=== PATIENT | male | born 1960 | race Caucasian/White ===

== ENCOUNTER → 2020-06-25 10:24 | Outpatient (BNVA) | payer OTHER, SELFPAY | PROVIDERS: Family Provider Nurse Practitioner; Referring Provider Dermatology; Visit Provider Specialist | DX: M79.642 Pain in left hand (principal) | CPT/HCPCS: 73130 ==

== ENCOUNTER → 2020-07-13 09:07 | Outpatient (BNVA) | payer OTHER, SELFPAY | PROVIDERS: Family Provider Nurse Practitioner; Visit Provider Specialist | DX: M67.432 Ganglion, left wrist (principal); Z20.828 Contact with and (suspected) exposure to other viral communicable diseases | CPT/HCPCS: 87635 ==

== ENCOUNTER 2020-07-17 09:31 | Day surgery (SDC) | payer OTHER, SELFPAY ==
[2020-07-16 14:04] VITALS: BMI 39.7
[2020-07-16 14:53] VITALS: BMI 23.8
[2020-07-17 09:40] VITALS: BP 152/75; PULSE 75; RESP 18; TEMP 36.2; O2SAT 98
--- NOTE | 2020-07-17 09:41 | P.HPUD_ITS ---
Surgery/Procedure H&P Update DATE OF PROCEDURE: July 17, 2020 DATE H&P PERFORMED: 06/25/20 H&P UPDATE INFORMATION: I have reviewed H&P completed within last 30 days, I have examined patient prior to procedure, No changes to prior documentation and H&P is in [facility] EMR on date indicated PREOP DIAGNOSIS: Dorsal left wrist ganglion PLANNED PROCEDURE: Operation Date: 07/17/20 11:15 Proposed Procedures p Excision Of Ganglion Cyst left wrist 37222 M67.432(Left) - Gill Castillo MD Related Problem List Diagnoses (1) Ganglion cyst of dorsum of left wrist:
[2020-07-17] MEDS: sodium chloride 0.9% 1,000 ML 30 ML IV (10:04)
[2020-07-17] MEDS: acetaminophen 1,000 MG/100 ML PIGGYBACK 400 MG IV (10:10)
[2020-07-17] MEDS: CELEcoxib 200 mg Capsule 400 MG PO (10:14)
--- NOTE | 2020-07-17 10:19 | ANES.PREANE2 ---
Pre-Anesthetic Assessment Pre-Anesthetic Assessment: Height/Weight: Height 1.7 m Weight 68.946 kg Temp Pulse Resp BP Pulse Ox 97.1 F L 75 18 152/75 98 07/17/20 09:40 07/17/20 09:40 07/17/20 09:40 07/17/20 09:40 07/17/20 09:40 Preop Diagnosis: Dorsal left wrist ganglion Proposed Procedure: Operation Date: 07/17/20 11:15 Proposed Procedures p Excision Of Ganglion Cyst left wrist 54892 M67.432(Left) - Gill Castillo MD Was Beta John taken within 24 hours: Yes Was Clonidine taken within 24 hours: N/A Last intake: Intake Last Liquid Date 07/16/20 Last Liquid Time 21:00 Last Solid Date 07/16/20 Last Solid Time 19:00 Social: Social History: No alcohol and No tobacco (H/o smoking) Exam: Pre-Anes Outpt Exam: alert, oriented x 3, clear to auscultation bilaterally and regular rate & rhythm Airway: Submandibular: WNL Cervical ROM: WNL MP: 2 Dentition: Full Pulmonary: Pulmonary: COPD CV/HEM: CV/HEM: CAD (stents) and HTN Anesthetic Plan: ASA status: 3 Anesthesia: MAC Risk of > 500 ml blood loss (7ml/kg in children): No Meds/Allergies Current Medications: Current Medications Generic Name Dose Route Start Last Admin Trade Name Freq PRN Reason Stop Dose Admin Acetaminophen 1,000 mg in 100 m ls @ 400 mls/hr 07/17/20 09:36 07/17/20 10:10 Acetaminophen IV 400 mls/hr ONCE ONE Administration Sodium Chloride 1,000 mls @ 30 ml s/hr 07/17/20 09:45 07/17/20 10:04 Sodium Chloride 0.9% IV 07/18/20 09:44 30 mls/hr .Q24H JASON Administration PFSH Anesthesia PFSH: Social History Smoking and tobacco status: former smoker Alcohol intake: current Alcohol intake frequency: holidays/special occasions only Data Anesthesia Cardiac Studies: No Data to Display
[2020-07-17 11:18] VITALS: BP 154/55; PULSE 52; RESP 16; TEMP 36.2; O2SAT 97
[2020-07-17 11:25] VITALS: BP 118/51; PULSE 58; RESP 14; TEMP 36.6; O2SAT 98
--- NOTE | 2020-07-17 11:27 | PM.OP ---
Operative Report Date of procedure: July 17, 2020 Pre-op Diagnosis: Dorsal left wrist ganglion Post-op diagnosis: same Procedure Done: Excision left dorsal wrist ganglion Implants: None Specimens removed/disposition: Dorsal wrist ganglion Pathology: Dorsal wrist ganglion Surgeon: Gill Castillo Anesthesia: MAC (With local anesthetic) Estimated blood loss (mL): 10 Tourniquet time (min): 20 Tourniquet time: At 250 mmHg IV fluids (mL): 550 Urine output (mL): 0 Urine output: No Escobar Complications: None Findings: Large dorsal wrist ganglion Condition: stable Disposition: PACU (Then return to same-day surgery for discharge to home) Brief History: This 59-year-old gentleman presented with a large dorsal wrist ganglion. It was uncomfortable for him, and he wished to have it excised. Risks and complications were discussed. Consents were signed. Procedure: The patient was brought to the operating theater. The patient had a MAC with local anesthetic infiltration. The tourniquet was elevated to 250 mmHg for a total tourniquet time of 20 minutes. The patient was also given Ancef 2 g preoperatively. The arm was then prepped and draped with DuraPrep in usual fashion with the arm draped free. A surgical pause was performed. At the time, the surgical pause, we confirmed the site and side of surgery. We also confirmed the patient's identity, appropriate and timely administration of preoperative antibiotics and preoperative surgical markings. An incision was then made along the dorsal wrist crease corresponding to the central portion of the ganglion. This was made in a transverse type fashion. Initially, just the skin was incised. Soft tissues were then spread using tenotomy scissors. We were able to circumferentially elevate soft tissues from around the ganglion preserving the soft tissues including sensory nerves. We are able to find the stalk of the ganglion and it was excised from this area. The ganglion was sent to pathology. It was filled with ganglion cyst type fluid. The wound was then copiously irrigated. Tourniquet was released and hemostasis was obtained. We determined prior to tourniquet release was there was any further ganglion tissue. Finding none, attention was directed to closure. The wound was irrigated with ropivacaine plain. It was then closed with 3-0 nylon in an interrupted mattress fashion. Sterile dressing was then placed consisting of OpSite, fluffed fluffs, sterile soft roll, and an Shravan wrap. The tourniquet was released after 20 minutes. There were no complications. There were no specimens. The procedure was well tolerated. Plan is the patient will be discharged home. Associated Problem List Diagnoses (1) Ganglion cyst of dorsum of left wrist:
[2020-07-17 11:35] VITALS: BP 128/53; PULSE 50; RESP 16; TEMP 36.6; O2SAT 97
[2020-07-17 12:05] VITALS: BP 113/57; PULSE 51; RESP 16; TEMP 36.6; O2SAT 98
--- NOTE | 2020-07-17 13:05 | ANE.PACU2 ---
Inpatient post-anesthesia follow up: Airway intact: Yes Vital signs: Temperature 97.9 F Pulse Rate 51 Respiratory Rate 16 Blood Pressure 113/57 Pulse Oximetry 98 Oxygen Delivery Me thod Room Air Oxygen Flow Rate Fraction of Inspir ed Oxygen Hydration adequate: Yes Nausea and vomiting: No Pain level: 1 Mental status: Baseline
== END 2020-07-17 12:15 | disposition home or self-care (01) ==
PROVIDERS: PCP Nurse Practitioner; Visit Provider Specialist
PROC: (CPT 25111; principal; 2020-07-17 11:05)
DX: M67.432 Ganglion, left wrist (principal); J44.9 Chronic obstructive pulmonary disease, unspecified; I25.10 Atherosclerotic heart disease of native coronary artery without angina pectoris; Z95.5 Presence of coronary angioplasty implant and graft; I10 Essential (primary) hypertension; Z87.891 Personal history of nicotine dependence
CPT/HCPCS: 25111; 88304; 96365; J0690; J2250; J2704; J3010; J3490; J7030

== ENCOUNTER 2021-01-01 09:18 | Outpatient (CLI) | payer OTHER, SELFPAY ==
--- NOTE | 2021-01-01 09:30 | USCV_ITS ---
Myles Ramsay Age: 60 Gender: M : 1960 Exam Date: 01/01/2021 09:48 Ordering Phys: Elle Seo NP Technologist: Tila Gómez [place] [facility] [place]: ESSENTIAL HTN, HX CARDIAC STENT BP: 120 / 70 HR: 64 Rhythm: Sinus Technical Quality: Good MEASUREMENTS (Male / Female) Normal Values 2D ECHO LV Diastolic Diameter PLAX 4.9 cm 4.2 - 5.9 / 3.9 - 5.3 cm LV Systolic Diameter PLAX 2.5 cm IVS Diastolic Thickness 1.0 cm 0.6 - 1.0 / 0.6 - 0.9 cm IVS Systolic Thickness 1.5 cm LVPW Diastolic Thickness 1.0 cm 0.6 - 1.0 / 0.6 - 0.9 cm LVPW Systolic Thickness 1.2 cm LVOT Diameter 2.1 cm LV Ejection Fraction 2D Teich 79.9 % LV Ejection Fraction MOD 2C 69.5 % LV Ejection Fraction 2C AL 71.3 % LA Diameter 2.4 cm LA Width 2.6 cm LA Height 3.4 cm RA Width 2.6 cm RA Height 3.7 cm Aorta at Sinotubular Diameter 2.8 cm DOPPLER AV Peak Velocity 123.0 cm/s LVOT Peak Velocity 119.0 cm/s AV Area Cont Eq vti 3.6 cm squared AV Area Cont Eq pk 3.3 cm squared MV Peak Velocity 90.0 cm/s MV Area PHT 2.2 cm squared Mitral E to A Ratio 0.9 MV E' Velocity 42.0 cm/s Mitral E to MV E' Ratio 6.6 Mitral E to LV E' Lateral Ratio 6.1 Mitral E to LV E' Septal Ratio 7.1 TR Peak Velocity 90.0 cm/s TR Peak Gradient 3.2 mmHg Right Atrial Pressure 3.0 mmHg Pulmonary Artery Systolic Pressu 6.2 mmHg PV Peak Velocity 86.0 cm/s RV Acceleration Time 0.1 s RV Ejection Time 0.3 s RV AcT/ET 0.5 FINDINGS Left Ventricle Normal left ventricular size. LV systolic function is normal with EF of 55-60%.Mild hypokinesis of the anterior wall. Normal diastolic filling pattern. Right Ventricle The right ventricle is normal in size and function. Right Atrium The right atrium is normal in size. Left Atrium The left atrium is normal in size. Mitral Valve Structurally normal mitral valve without significant stenosis or prolapse. There is no mitral regurgitation. Aortic Valve Structurally normal aortic valve without significant sclerosis or stenosis. There is no aortic regurgitation. Tricuspid Valve Structurally normal tricuspid valve without significant stenosis. Trace tricuspid regurgitation. Pulmonary artery systolic pressure is normal. Pulmonic Valve Structurally normal pulmonic valve without significant stenosis. There is no pulmonic regurgitation. Pericardium Normal pericardium without effusion. Aorta Normal ascending aorta dimension. CONCLUSIONS LV systolic function is normal with EF of 55-60%. Mild hypokinesis of the anterior wall. Diastolic function is normal No significant valvular heart disease is noted No comparison studies are available Benjamin Walsh MD (Electronically Signed) Final Date: 02 January 2021 15:17 S
--- NOTE | 2021-01-01 09:31 | XR_ITS ---
WS: [id number] Left shoulder, 3 views, 01/01/2021 Clinical Data: LEFT SHOULDER PAIN Comparison: None. Findings: No fractures or dislocations are seen. The AC joint is normal. The adjacent left clavicle, left scapu la and ribs are normal. There is a small calcification over the intertubercular groove which may repr esent calcific bursitis and/or tendinitis. XR/XR shoulder LT min 2V* [id number] Impression: Probable calcific bursitis or tendinitis of the intertubercular groove.
== END 2021-01-01 09:19 | disposition home or self-care (01) ==
PROVIDERS: PCP Nurse Practitioner Family; Visit Provider Nurse Practitioner Family
DX: I25.10 Atherosclerotic heart disease of native coronary artery without angina pectoris (principal); R53.83 Other fatigue; I10 Essential (primary) hypertension; M25.512 Pain in left shoulder; Z95.818 Presence of other cardiac implants and grafts
CPT/HCPCS: 73030; 93306

== ENCOUNTER 2023-08-18 15:57 | Inpatient (IN) | payer OTHER, SELFPAY ==
[2023-08-18] VITALS (7 sets, daily range): BP systolic 125–156; BP diastolic 77–96; PULSE 74–101; RESP 18; TEMP 36.3–36.4; O2SAT 95–98; BMI 16.4
--- NOTE | 2023-08-18 16:14 | ECG_ITS ---
[facility] Test Date: 2023-08-18 Pat Name: Myles Ramsay Department: Room: 278 Gender: Male Seismographer: : 1960 Requested By: Arpit Gomez Order Number: [id number] Alexandru MD: Star Son M.D. Measurements Intervals [place] Rate: 99 P: 85 WV: 151 QRS: 261 QRSD: 89 T: 68 QT: 336 QTc: 433 Interpretive Statements SINUS RHYTHM RIGHT VENTRICULAR HYPERTROPHY [SOME/ALL OF: PROMINENT R IN V1, LATE TRANSITION, RAD, IGOR, SSS] No previous ECG available for comparison Electronically Signed On 08-19-2023 9:17:14 CDT by Star Son M.D. [email or web address]
--- NOTE | 2023-08-18 16:14 | XRR_ITS ---
PROCEDURE INFORMATION: Exam: XR Chest Exam date and time: 08/18/2023 4:20 PM Age: 62 years old Clinical indication: Other: Weakness TECHNIQUE: Imaging protocol: Radiologic exam of the chest. Views: 1 view. COMPARISON: CR XR shoulder LT min 2V* [id number] 01/01/2021 9:39 AM FINDINGS: Lungs: Moderately hyperinflated lungs. Minor basilar atelectasis. Pleural spaces: Unremarkable. No pleural effusion. No pneumothorax. Heart/Mediastinum: Unremarkable. No cardiomegaly. Bones/joints: Unremarkable. XR/XR chest 1V portable [id number] IMPRESSION: Hyperinflated lungs suggestive of COPD. No focal airspace opacity.
--- NOTE | 2023-08-18 16:21 | CTR_ITS ---
PROCEDURE INFORMATION: Exam: CTA Chest With Contrast Exam date and time: 08/18/2023 5:37 PM Age: 62 years old Clinical indication: Vomiting and other: Weakness, loss of appetite; Shortness of breath; Prior surgery; Surgery date: 6+ months; Surgery type: Heart stents 20 years ago; Additional info: SOB, vomiting, weakness TECHNIQUE: Imaging protocol: Computed tomographic angiography of the chest with contrast. Exam focused on the arteries. 3D rendering (Not supervised by radiologist): MIP and/or 3D reconstructed images were created by the technologist. Radiation optimization: All CT scans at this facility use at least one of these dose optimization techniques: automated exposure control; mA and/or kV adjustment per patient size (includes targeted exams where dose is matched to clinical indication); or iterative reconstruction. Contrast material: OMNI 350; Contrast volume: 100 ml; Contrast route: INTRAVENOUS (IV); COMPARISON: CR XR chest 1V portable [id number] 08/18/2023 4:20 PM RADIATION DOSE METRICS: Total DLP (mGy-cm): 596.13 FINDINGS: Pulmonary arteries: Normal. No pulmonary emboli. Aorta: Unremarkable. No aortic aneurysm. No aortic dissection. Lungs: Hyperinflated lungs due to mild-moderate centrilobular emphysema. Borderline cylindrical bronchiectasis in the perihilar regions and lung bases. Mild superimposed diffuse bronchial wall thickening. Mild retained secretions in micronodular and patchy ground-glass peribronchial opacities in the left greater than right posterior lower lobes. A few other 2-3 mm nodules are noted (for example series 4, image 30 in the left upper lobe and image 36 in the right upper lobe). Pleural spaces: Unremarkable. No pneumothorax. No pleural effusion. Heart: Unremarkable. No cardiomegaly. No pericardial effusion. Lymph nodes: Unremarkable. No enlarged lymph nodes. Bones/joints: No acute osseous abnormality. Mild degenerative spondylosis. Soft tissues: Unremarkable. COMMENTS: The presence of pulmonary emphysema on CT is an independent risk factor for lung cancer. In the absence of a history or active diagnosis of lung cancer, it is recommended that this patient with emphysema be evaluated for enrollment in a low dose CT lung cancer screening program. PROCEDURE INFORMATION: Exam: CT Abdomen And Pelvis With Contrast Exam date and time: 08/18/2023 5:37 PM Age: 62 years old Clinical indication: Vomiting and other: Weakness, loss of appetite; Shortness of breath; Prior surgery; Surgery date: 6+ months; Surgery type: Heart stents 20 years ago; Additional info: SOB, vomiting, weakness TECHNIQUE: Imaging protocol: Computed tomography of the abdomen and pelvis with contrast. Radiation optimization: All CT scans at this facility use at least one of these dose optimization techniques: automated exposure control; mA and/or kV adjustment per patient size (includes targeted exams where dose is matched to clinical indication); or iterative reconstruction. Contrast material: OMNI 350; Contrast volume: 100 ml; Contrast route: INTRAVENOUS (IV); COMPARISON: CR XR chest 1V portable [id number] 08/18/2023 4:20 PM RADIATION DOSE METRICS: Total DLP (mGy-cm): 596.13 FINDINGS: Liver: Mild to moderate diffuse hepatic steatosis. Gallbladder and bile ducts: Normal. No calcified stones. No ductal dilation. Pancreas: Normal. No ductal dilation. Spleen: Normal. No splenomegaly. Adrenal glands: Normal. No mass. Kidneys and ureters: 2.1 cm left renal cyst. Additional 1.1 cm exophytic upper pole left renal cyst. Stomach and bowel: Scattered sigmoid diverticuli. Appendix: No evidence of appendicitis. Intraperitoneal space: Unremarkable. No free air. No significant fluid collection. Vasculature: Unremarkable. No abdominal aortic aneurysm. Lymph nodes: Unremarkable. No enlarged lymph nodes. Urinary bladder: Unremarkable as visualized. Reproductive: Unremarkable as visualized. Bones/joints: Mild multilevel mid to lower lumbar spondylosis. Soft tissues: Unremarkable. CT/CT angio chest w abd pel w con IMPRESSION: 1. No evidence of pulmonary embolism or acute aortic abnormality. 2. Mild -moderate emphysema and hyperinflation. Superimposed mild peribronchial ground-glass opacities and micronodules in the left greater than right lower lobes , suggestive of COPD exacerbation, bronchitis / early pneumonitis. 3. Scattered 2-3 mm basilar and upper lobe lung nodules , follow-up CT in 1 year is recommended in this high-risk patient according to the Fleischner guidelines. IMPRESSION: 1. No acute abdominopelvic abnormality or other imaging correlate for the reported history of weight loss. 2. Moderate diffuse hepatic steatosis, scattered sigmoid diverticuli, simple left renal cysts and other incidental and degenerative findings detailed above. COMMENTS: Consistent with the [employer]'s Incidental Findings Committee white paper (J Am Shirley Radiol 2018): Any incidental renal lesion less than 1 cm or classified as too small to characterize, or any incidental cystic renal lesion characterized as simple-appearing, is likely benign. No follow-up imaging is recommended for these lesions per consensus recommendations based on imaging criteria.
--- NOTE | 2023-08-18 16:21 | ECG_ITS ---
[facility] Test Date: 2023-08-18 Pat Name: Myles Ramsay Department: Room: Gender: Male Curb Hop: : 1960 Requested By: Arpit Gomez Order Number: [id number] Alexandru MD: Star Son M.D. Measurements Intervals [place] Rate: 99 P: 85 MD: 151 QRS: 261 QRSD: 89 T: 68 QT: 336 QTc: 433 Interpretive Statements SINUS RHYTHM RIGHT VENTRICULAR HYPERTROPHY [SOME/ALL OF: PROMINENT R IN V1, LATE TRANSITION, RAD, IGOR, SSS] No previous ECG available for comparison Electronically Signed On 08-19-2023 9:17:18 CDT by Star Son M.D. [email or web address]
--- NOTE | 2023-08-18 16:22 | ED_ITS ---
HPI - Weakness 2 General: Chief complaint: Weakness Stated complaint: weakness Time Seen by Provider: 08/18/23 16:15 Source: patient Mode of arrival: ambulatory Limitations: no limitations History of Present Illness: 62-year-old male who states that he has had some weakness fatigue and not feeling well really since May states over the last 3 to 4 days it is worsening he states today he is felt very shaky he has had a loss of appetite over the last 3 weeks he is felt nauseous he denies any fevers he is a smoker denies chest pain. 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 Hypertension, essential History of placement of stent in LAD coronary artery Surgical History History of heart artery stent Family History Mother Breast cancer Lung cancer Stomach cancer Father Dementia Heart disease Social History Smoking and tobacco/nicotine status: former use of tobacco/nicotine Alcohol intake: current Alcohol intake frequency: holidays/special occasions only Substance/Drug Use: never Physical Exam 2 Const: COMMON NORMALS: patient oriented x3 GENERAL APPEARANCE: frail appearing HENMT: COMMON NORMALS: normocephalic and atraumatic HEAD & SCALP: n ormocephalic and atraumatic Neck/C-Spine: COMMON NORMALS: full ROM and supple Chest: COMMONS NORMALS: normal inspection of the chest Resp: COMMON NORMALS: normal respiratory effort, No retractions, No use of accessory muscles and clear to auscultation bilaterally AUSCULTATION: clear to auscultation bilaterally Cardio: COMMON NORMALS: regular rate, regular rhythm and No murmurs present (Cardio) RATE: regular rate RHYTHM: regular rhythm GI: COMMON NORMALS: Normal to inspection, nondistended, normoactive bowel sounds present, Soft to palpation, non-tender and no masses PALPATION: Yes Soft to palpation Extremity: COMMON NORMALS: normal to inspection and full ROM Neuro: COMMON NORMALS: patient oriented x3, moves all extremities and no focal motor deficits Psych: COMMON NORMALS: mental status grossly normal, Normal thought process present and cooperative THOUGHT PROCESS: Normal thought process present Skin: COMMON NORMALS: no rashes or lesions noted and no wounds GENERAL SKIN EXAM: no rashes or lesions noted Course 2 Vital Signs: Vital signs: Vital Signs Temperature 97.3 F L 08/18/23 16:03 Pulse Rate 88 08/18/23 19:09 Respiratory Rate 18 08/18/23 16:03 Blood Pressure 141/86 08/18/23 19:09 Pulse Oximetry 97 08/18/23 19:09 Oxygen Delivery Me thod Room Air 08/18/23 16:03 MDM - Weakness Medical Decision Making Patient presents here with generalized weakness he does have an elevated white count here along with elevated lactate his CT shows a pneumonitis possible pneumonia his vital signs here been normal he had no hypotension did start antibiotics did give him IV fluid bolus will admit for observation at this time. Medical Records I reviewed the patient's medical records. Lab Data I reviewed the patient's lab results. 08/18/23 16:41 08/18/23 16:41 Radiology Impressions Chest X-Ray 08/18/23 16:14 IMPRESSION: Hyperinflated lungs suggestive of COPD. No focal airspace opacity. Chest/Abdomen/Pelvis CT 08/18/23 16:21 IMPRESSION: 1. No evidence of pulmonary embolism or acute aortic abnormality. 2. Mild -moderate emphysema and hyperinflation. Superimposed mild peribronchial ground-glass opacities and micronodules in the left greater than right lower lobes , suggestive of COPD exacerbation, bronchitis / early pneumonitis. 3. Scattered 2-3 mm basilar and upper lobe lung nodules , follow-up CT in 1 year is recommended in this high-risk patient according to the Fleischner guidelines. IMPRESSION: 1. No acute abdominopelvic abnormality or other imaging correlate for the reported history of weight loss. 2. Moderate diffuse hepatic steatosis, scattered sigmoid diverticuli, simple left renal cysts and other incidental and degenerative findings detailed above. COMMENTS: Consistent with the [employer]'s Incidental Findings Committee white paper (J Am Shirley Radiol 2018): Any incidental renal lesion less than 1 cm or classified as too small to characterize, or any incidental cystic renal lesion characterized as simple-appearing, is likely benign. No follow-up imaging is recommended for these lesions per consensus recommendations based on imaging criteria. Laboratory Results WBC 14.10 10^3/uL (3.29-11.43) H 08/18/23 16:41 RBC 5.08 10^6/uL (3.85-5.65) 08/18/23 16:41 Hgb 16.90 g/dL (11.27-16.99) 08/18/23 16:41 Hct 45.9 % (37-53) 08/18/23 16:41 MCV 90.4 fl (82-101) 08/18/23 16:41 MCH 33.3 pg (27-33) H 08/18/23 16:41 MCHC 36.8 g/dL (30-55) 08/18/23 16:41 RDW 11.5 % (12.1-15.1) L 08/18/23 16:41 Plt Count 316 10^3/cmm (157-399) 08/18/23 16:41 MPV 9.0 fL (7.4-10.4) 08/18/23 16:41 Neut % (Auto) 90.6 % 08/18/23 16:41 Lymph % (Auto) 2.8 % 08/18/23 16:41 [place] % (Auto) 5.9 % 08/18/23 16:41 Eos % (Auto) 0.0 % 08/18/23 16:41 Baso % (Auto) 0.3 % 08/18/23 16:41 Neut # (Auto) 12.79 10^3/uL (1.8-7.7) H 08/18/23 16:41 Lymph # (Auto) 0.4 10^3/uL (0.8-4.8) L 08/18/23 16:41 [place] # (Auto) 0.8 10^3/uL (0.2-0.9) 08/18/23 16:41 Eos # (Auto) 0.0 10^3/uL (0.0-0.8) 08/18/23 16:41 Baso # (Auto) 0.0 10^3/uL (0.0-0.1) 08/18/23 16:41 Nucleated RBC % (auto) 0 % 08/18/23 16:41 Nucleated RBCs # 0.0 /100WBC 08/18/23 16:41 PT 12.80 SECONDS (12.1-14.9) 08/18/23 16:41 INR 0.93 (0.8-1.2) 08/18/23 16:41 Sodium 132 mmol/L (136-145) L 08/18/23 16:41 Potassium 4.0 mmol/L (3.5-5.1) 08/18/23 16:41 Chloride 91 mmol/L (98-107) L 08/18/23 16:41 Carbon Dioxide 20 mmol/L (22-29) L 08/18/23 16:41 Anion Gap 25.0 (5-19) H 08/18/23 16:41 BUN 9 mg/dL (8-23) 08/18/23 16:41 Creatinine 0.7 mg/dL (0.7-1.2) 08/18/23 16:41 GFR Calculation 114.3 mL/min (90-130) 08/18/23 16:41 Glucose 162 mg/dL (65-115) H 08/18/23 16:41 Calculated Osmolality 276 mOsm/kg (285-295) L 08/18/23 16:41 Lactic Acid 2.4 mmol/L (0.5-2.2) H 08/18/23 17:52 Calcium 10.3 mg/dL (8.5-10.5) 08/18/23 16:41 Magnesium 2.0 mg/dL (1.7-2.3) 08/18/23 16:41 Total Bilirubin 0.7 mg/dL (0.15-1.2) 08/18/23 16:41 AST 94 U/L (0-40) H 08/18/23 16:41 ALT 123 U/L (0-41) H 08/18/23 16:41 Alkaline Phosphatase 112 U/L (40-130) 08/18/23 16:41 Troponin T Baseline 10 ng/L (0-15) 08/18/23 16:41 Troponin T 120 Minute 10.28 ng/L (0-15) 08/18/23 17:52 Delta Troponin T 0.28 ABS# (0-10) 08/18/23 17:52 Total Protein 7.6 g/dL (6.6-8.7) 08/18/23 16:41 Albumin 4.5 g/dL (3.5-5.2) 08/18/23 16:41 Globulin 3.1 g/dL (1.3-4.6) 08/18/23 16:41 TSH 2.57 uIU/mL (0.27-4.20) 08/18/23 16:41 Urine Color Yellow (Yellow) 08/18/23 18:38 Urine Appearance Clear (CLEAR) 08/18/23 18:38 Urine pH 6.5 (5-7) 08/18/23 18:38 Ur Specific [place] 1.005 (1.005-1.030) 08/18/23 18:38 Urine Protein 1+ (Negative) H 08/18/23 18:38 Urine Glucose (UA) Norm (Normal) 08/18/23 18:38 Urine Ketones 2+ (Negative) H 08/18/23 18:38 Urine Blood Neg (Negative) 08/18/23 18:38 Urine Nitrate Negative (Negative) 08/18/23 18:38 Urine Bilirubin Neg (Negative) 08/18/23 18:38 Urine Urobilinogen 1 mg/dL (Negative) H 08/18/23 18:38 Ur Leukocyte Esterase Negative (Negative) 08/18/23 18:38 Urine RBC 0-4 /hpf (0-2) H 08/18/23 18:38 Urine WBC None /hpf (0-5) 08/18/23 18:38 Ur Squamous Epith Cells 0-4 /hpf (0-5) H 08/18/23 18:38 Amorphous Sediment Not Reportable 08/18/23 18:38 Urine Bacteria None /hpf (NONE) 08/18/23 18:38 Urine Mucus Trace /hpf 08/18/23 18:38 All radiology interpretation(s) finalized by discharge EKG Data EKG 1: I personally reviewed and interpreted this EKG as follows: EKG interpretation date: 08/18/23 EKG interpretation time: 16:14 Interpretation: nsr hr [address] elevation qrs 89 qtc 393 Discharge Plan Discharge Patient Disposition: Admitted As Inpatient Admit Provider: Kailee Chi Clinical Impression: Pneumonia Condition: Stable Coding Level of Care Code ED Grill Attendant for Chg Michael
[2023-08-18] MEDS: sodium chloride 0.9% 1,000 ML 999 ML IV ×2 (16:50→18:06)
[2023-08-18] MEDS: LORazepam 2 mg/mL INJ 10 mL MDV 0.5 MG IVP (16:51)
[2023-08-18 17:01] LABS: Basophils % 0.3 %; Hematocrit 45.9 % (37-53); Lymphocytes # 0.4 10^3/uL (0.8-4.8); Lymphocytes % 2.8 %; Mean Corpuscular HGB Conc 36.8 g/dL (30-55); Mean Corpuscular Hemoglobin 33.3 pg (27-33); Mean Corpuscular Volume 90.4 fl (82-101); Monocytes # 0.8 10^3/uL (0.2-0.9); Monocytes % 5.9 %; Neutrophils # 12.79 10^3/uL (1.8-7.7); Neutrophils % 90.6 %; Nucleated Red Blood Cells % 0 %; Platelet Count 316 10^3/cmm (157-399); Red Blood Count 5.08 10^6/uL (3.85-5.65); Red Cell Distribution Width 11.5 % (12.1-15.1)
[2023-08-18 17:11] LABS: INR 0.93 (0.8-1.2)
[2023-08-18 17:16] LABS: Troponin(5th) Baseline 10 ng/L (0-15)
[2023-08-18 17:27] LABS: Alanine Aminotransferase 123 U/L (0-41); Albumin Level 4.5 g/dL (3.5-5.2); Alkaline Phosphatase 112 U/L (40-130); Aspartate Amino Transferase 94 U/L (0-40); Blood Urea Nitrogen 9 mg/dL (8-23); Calcium 10.3 mg/dL (8.5-10.5); Carbon Dioxide 20 mmol/L (22-29); Chloride 91 mmol/L (98-107); Globulin 3.1 g/dL (1.3-4.6); Glomerular Filtration Rate 114.3 mL/min (90-130); Glucose 162 mg/dL (65-115); Osmolality Calculated 276 mOsm/kg (285-295); Sodium 132 mmol/L (136-145); Thyroid Stimulating Hormone 2.57 uIU/mL (0.27-4.20); Total Bilirubin 0.7 mg/dL (0.15-1.2); Total Protein 7.6 g/dL (6.6-8.7)
[2023-08-18] MEDS: iohexol 350 mg/mL 500 mL Btl (per mL) IV (17:32)
[2023-08-18 18:22] LABS: Lactic Sepsis W/Reflex 2.4 mmol/L (0.5-2.2)
[2023-08-18 18:34] LABS: Troponin 5 2HR 10.28 ng/L (0-15); Troponin 5 2HR Delta 0.28 ABS# (0-10)
[2023-08-18 19:05] LABS: Add Urine Microscopic? YES; Bilirubin Urine Neg (Negative); Blood Urine Neg (Negative); Glucose Urine UA Norm (Normal); Ketones Urine 2+ (Negative); Leukocyte Esterase Urine Negative (Negative); Nitrate Urine Negative (Negative); Protein Urine 1+ (Negative); Specific Gravity, Urine 1.005 (1.005-1.030); Urine Appearance Clear (CLEAR); Urine Color Yellow (Yellow); Urobilinogen Urine 1 mg/dL (Negative); pH Urine 6.5 (5-7)
[2023-08-18] MEDS: cefTRIAXone 1,000 MG in sodium chloride 0.9% (plus) 50 ML 100 MG IV (19:08)
[2023-08-18 19:11] LABS: Add Urine Culture? No; Mucus Urine TRACE /hpf; RBC Urine 0-4 /hpf (0-2); Squamous Epithelial Cell Urine 0-4 /hpf (0-5)
--- NOTE | 2023-08-18 19:15 | ECG_ITS ---
[facility] Test Date: 2023-08-18 Pat Name: Myles Ramsay Department: Room: Gender: Male [employer]: : 1960 Requested By: Arpit Gomez Order Number: [id number] Alexandru MD: Star Son M.D. Measurements Intervals [place] Rate: 86 P: 144 [place]: 129 QRS: -54 QRSD: 82 T: 71 QT: 364 QTc: 436 Interpretive Statements ECTOPIC ATRIAL RHYTHM LEFT AXIS DEVIATION [QRS AXIS < -30] Compared to ECG 08/18/2023 16:14:55 Ectopic atrial rhythm now present Left-axis deviation now present Sinus rhythm no longer present Right ventricular hypertrophy no longer present Atrial abnormality no longer present Electronically Signed On 08-19-2023 9:19:37 CDT by Star Son M.D. [email or web address] [email or web address].[email or web address]/store/[id number]
[2023-08-18] MEDS: azithromycin 500 MG in sodium chloride 0.9% 250 ML 250 MG IV (19:26)
[2023-08-18 19:43] LABS: Reflex Lactate Order REFLEX LACTIC ORDERD
[2023-08-18 20:04] LABS: Influenza A by IFA negative (Negative); Influenza B by IFA negative (Negative)
[2023-08-18 21:19] LABS: Lactic Acid level (Lactate) 1.1 mmol/L (0.5-2.2)
[2023-08-18 22:14] LABS: Troponin 5 6HR 15.97 ng/L (0-15); Troponin 5 6HR Delta 5.97 ng/L (0-12)
--- NOTE | 2023-08-18 22:21 | ECG_ITS ---
[facility] Test Date: 2023-08-18 Pat Name: Myles Ramsay Department: Room: 278 Gender: Male Class A [employer]: : 1960 Requested By: Arpit Gomez Order Number: [id number] Alexandru MD: Star Son M.D. Measurements Intervals [place] Rate: 99 P: 83 [place]: 141 QRS: 265 QRSD: 94 T: 67 QT: 333 QTc: 427 Interpretive Statements SINUS RHYTHM RIGHT AXIS DEVIATION [QRS AXIS > 100] INCOMPLETE RIGHT BUNDLE BRANCH BLOCK [90+ ms QRS DURATION, TERMINAL R IN V1/V2, 40+ ms S IN I/aVL/V4/V5/V6] Compared to ECG 08/18/2023 19:15:53 Right-axis deviation now present Incomplete right bundle-branch block now present Ectopic atrial rhythm no longer present Left-axis deviation no longer present Electronically Signed On 08-19-2023 9:19:58 CDT by Star Son M.D. [id number]
--- NOTE | 2023-08-18 22:31 | P.HP_ITS ---
Providers/Chief Complaint 2 Admitting Physician: Kailee Chi MD Primary Care Provider: Elle Seo NP Chief Complaint: weakness History of Present Illness Myles Ramsay is a 62 year old male with a past medical history of hypertension who is presenting to the emergency room today with 3 to 4 days of increasing generalized weakness, shaking chills, multiple episodes of vomiting. Patient states that he has been unable to keep any oral intake, starts to throw up as soon as he drinks a glass of water. Presented to the emergency room today as he felt much worse than usual. Denies any cough dyspnea chest pain palpitations abdominal pain or diarrhea. Denies any fever but does report chills. Patient states he drinks a few beers a week, does not quantify unless specifically asked. Uses marijuana and CBD Gummies to sleep. States that prior to starting his current symptoms 3 days ago he had had 3 beers. Review of Systems 2 General: Reports: 10 or more systems reviewed and unremarkable except in HPI and below Const: Denies: fever(s), chills or body aches Eyes: Denies: change in vision, blurry vision or photophobia ENMT: Reports: hoarseness; Denies: throat pain, enlarged tonsils, odynophagia or nasal congestion Card: Denies: chest pain, palpitations, irregular heart rhythm, edema, swelling of feet/ankles, lightheadedness, pre-syncope, dyspnea on exertion or orthopnea Resp: Denies: dyspnea, productive cough, non-productive cough, wheezing, stridor, pain on inspiration, change in phlegm color, hemoptysis or chest congestion GI: Denies: abdominal pain, nausea, vomiting, hematemesis, coffee ground emesis, dysphagia, heartburn, diarrhea, constipation, GI cramping, change in stool character, hematochezia or melena : Denies: flank pain, dysuria, urinary frequency, urinary urgency, urinary hesitancy or hematuria Musc: Denies: neck pain, back pain, extremity pain, joint swelling, joint warmth or deformity Neuro: Denies: headache(s), numbness in extremities, weakness in extremities, sensory changes, difficulty walking, frequent falls, dizziness, vertigo, behavioral changes, Slurred speech present or seizure-like activity Psych: Denies: anxiety, depression, suicidal ideation or homicidal ideation Endo: Denies: polyuria, polydipsia, tired all the time, cold intolerance or hot flashes Gerald/Lymph: Denies: easy bruising or easy bleeding Medications/Allergies Home Medications Medication Instructions Recorded Confirmed Last Taken Type sildenafil 50 mg tablet 50 mg PO DAILY PRN sexual activity 09/29/21 08/18/23 Unknown Rx #30 tabs amlodipine 10 mg tablet (Norvasc) 10 mg PO DAILY #90 tabs 06/29/22 08/18/23 Unknown Rx aspirin 81 mg tablet,delayed 81 mg PO DAILY #90 tabs 06/29/22 08/18/23 Unknown Rx release metoprolol succinate 100 mg 50 mg (1/2 x 100 mg) PO DAILY #90 06/29/22 08/18/23 Unknown Rx tablet,extended release 24 hr tabs (Toprol XL) ramipril 10 mg capsule (Altace) 10 mg PO DAILY #90 caps 06/29/22 08/18/23 Unknown Rx rosuvastatin 40 mg tablet (Crestor) 40 mg PO DAILY #90 tabs 06/29/22 08/18/23 Unknown Rx hydroxyzine HCl 25 mg tablet 25 mg PO TID PRN itching #270 tabs 07/07/22 08/18/23 Unknown Rx fluoxetine 20 mg capsule 20 mg PO DAILY 05/18/23 08/18/23 Unknown History Allergies Allergy/AdvReac Type Severity Reaction Status Date / Time No Known Allergies Allergy Verified 06/27/23 08:04 PFSH Acute 2 PFSH: Medical History 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 Hypertension, essential History of placement of stent in LAD coronary artery Surgical History History of heart artery stent Family History Mother Breast cancer Lung cancer Stomach cancer Father Dementia Heart disease Social History (Updated 08/19/23 @ 06:54 by Kailee Chi MD) Smoking and tobacco/nicotine status: former use of tobacco/nicotine Alcohol intake: current Alcohol intake frequency: holidays/special occasions only Substance/Drug Use: never Additional social history: Uses marijuana and CBD Gummies daily Vitals/I&O/Wt Last Vital Signs Temp 97.5 F L 08/18/23 21:49 Pulse 74 08/18/23 21:49 Resp 18 08/18/23 21:49 BP 155/83 08/18/23 21:49 Pulse Ox 97 08/18/23 21:49 O2 Del Method Room Air 08/18/23 21:49 08/18/23 08/18/23 08/18/23 06:59 14:59 22:59 Intake Total 1300 / 1300 Balance 1300 / 1300 Weight last 48 hrs Weight 47.627 kg Weight 63.503 kg Physical Exam 2 Narrative: General: No acute distress, AO x3 HEENT: PERRLA, pupils bilaterally equal and reactive, pallors not present Chest: Normal vesicular breath sounds, no added sounds, equal good air entry bilaterally CVS: S1-S2 regular, no murmurs, no tachycardia, no gallops, no rubs Abdomen: Soft, nontender, no organomegaly, bowel sounds present Neuro: No focal deficits, no facial deformity, AO x3, power 5/5 in all limbs Data 08/19/23 02:41 08/19/23 02:41 Micro: Microbiology 08/18/23 19:05 Blood Culture - Preliminary Blood SPECIMEN COLLECTED 08/18/23 19:00 Blood Culture - Preliminary Blood SPECIMEN COLLECTED Other data: [employer] [address] [address] Scan Report Signed Patient: Myles Ramsay Unit #: [id number] : 1960 Age/Sex: 62 / M ADM Date: 08/18/23 Loc: ER Room/Bed: Attending Dr: Ordering Provider/Ordering MD: Arpit Gomez MD Date of Service: 08/18/23 Procedure(s): CT angio chest w abd pel w con Accession Number(s): [id number] Report Number: [id number] PROCEDURE INFORMATION: Exam: CTA Chest With Contrast Exam date and time: 08/18/2023 5:37 PM Age: 62 years old Clinical indication: Vomiting and other: Weakness, loss of appetite; Shortness of breath; Prior surgery; Surgery date: 6+ months; Surgery type: Heart stents 20 years ago; Additional info: SOB, vomiting, weakness TECHNIQUE: Imaging protocol: Computed tomographic angiography of the chest with contrast. Exam focused on the arteries. 3D rendering (Not supervised by radiologist): MIP and/or 3D reconstructed images were created by the technologist. Radiation optimization: All CT scans at this facility use at least one of these dose optimization techniques: automated exposure control; mA and/or kV adjustment per patient size (includes targeted exams where dose is matched to clinical indication); or iterative reconstruction. Contrast material: OMNI 350; Contrast volume: 100 ml; Contrast route: INTRAVENOUS (IV); COMPARISON: CR XR chest 1V portable [id number] 08/18/2023 4:20 PM RADIATION DOSE METRICS: Total DLP (mGy-cm): 596.13 FINDINGS: Pulmonary arteries: Normal. No pulmonary emboli. Aorta: Unremarkable. No aortic aneurysm. No aortic dissection. Lungs: Hyperinflated lungs due to mild-moderate centrilobular emphysema. Borderline cylindrical bronchiectasis in the perihilar regions and lung bases. Mild superimposed diffuse bronchial wall thickening. Mild retained secretions in micronodular and patchy ground-glass peribronchial opacities in the left greater than right posterior lower lobes. A few other 2-3 mm nodules are noted (for example series 4, image 30 in the left upper lobe and image 36 in the right upper lobe). Pleural spaces: Unremarkable. No pneumothorax. No pleural effusion. Heart: Unremarkable. No cardiomegaly. No pericardial effusion. Lymph nodes: Unremarkable. No enlarged lymph nodes. Bones/joints: No acute osseous abnormality. Mild degenerative spondylosis. Soft tissues: Unremarkable. COMMENTS: The presence of pulmonary emphysema on CT is an independent risk factor for lung cancer. In the absence of a history or active diagnosis of lung cancer, it is recommended that this patient with emphysema be evaluated for enrollment in a low dose CT lung cancer screening program. PROCEDURE INFORMATION: Exam: CT Abdomen And Pelvis With Contrast Exam date and time: 08/18/2023 5:37 PM Age: 62 years old Clinical indication: Vomiting and other: Weakness, loss of appetite; Shortness of breath; Prior surgery; Surgery date: 6+ months; Surgery type: Heart stents 20 years ago; Additional info: SOB, vomiting, weakness TECHNIQUE: Imaging protocol: Computed tomography of the abdomen and pelvis with contrast. Radiation optimization: All CT scans at this facility use at least one of these dose optimization techniques: automated exposure control; mA and/or kV adjustment per patient size (includes targeted exams where dose is matched to clinical indication); or iterative reconstruction. Contrast material: OMNI 350; Contrast volume: 100 ml; Contrast route: INTRAVENOUS (IV); COMPARISON: CR XR chest 1V portable [id number] 08/18/2023 4:20 PM RADIATION DOSE METRICS: Total DLP (mGy-cm): 596.13 FINDINGS: Liver: Mild to moderate diffuse hepatic steatosis. Gallbladder and bile ducts: Normal. No calcified stones. No ductal dilation. Pancreas: Normal. No ductal dilation. Spleen: Normal. No splenomegaly. Adrenal glands: Normal. No mass. Kidneys and ureters: 2.1 cm left renal cyst. Additional 1.1 cm exophytic upper pole left renal cyst. Stomach and bowel: Scattered sigmoid diverticuli. Appendix: No evidence of appendicitis. Intraperitoneal space: Unremarkable. No free air. No significant fluid collection. Vasculature: Unremarkable. No abdominal aortic aneurysm. Lymph nodes: Unremarkable. No enlarged lymph nodes. Urinary bladder: Unremarkable as visualized. Reproductive: Unremarkable as visualized. Bones/joints: Mild multilevel mid to lower lumbar spondylosis. Soft tissues: Unremarkable. CT/CT angio chest w abd pel w con IMPRESSION: 1. No evidence of pulmonary embolism or acute aortic abnormality. 2. Mild -moderate emphysema and hyperinflation. Superimposed mild peribronchial ground-glass opacities and micronodules in the left greater than right lower lobes , suggestive of COPD exacerbation, bronchitis / early pneumonitis. 3. Scattered 2-3 mm basilar and upper lobe lung nodules , follow-up CT in 1 year is recommended in this high-risk patient according to the Fleischner guidelines. IMPRESSION: 1. No acute abdominopelvic abnormality or other imaging correlate for the reported history of weight loss. 2. Moderate diffuse hepatic steatosis, scattered sigmoid diverticuli, simple left renal cysts and other incidental and degenerative findings detailed above. A&P Assessment and plan (1) Pneumonia: (2) Recurrent vomiting: (3) Transaminitis: May be related to alcohol use (4) Dehydration: From GI loss Plan 62-year-old male presenting with generalized weakness, chills, multiple episodes of vomiting over the past [address] of his abdomen and pelvis is negative for any acute abdominal pathology. Incidentally noted to have moderate diffuse hepatic steatosis. Labs significant for leukocytosis, transaminitis, signs of dehydration with hyponatremia, hypochloremia, elevated anion gap at 25, elevated lactate at 2.4, improved with hydration at 1.1. CT of his chest shows peribronchial groundglass opacities and micronodules possibly suggestive of bronchitis versus early pneumonitis. Current differentials at this time include atypical pneumonia, gastritis, perhaps alcohol induced, viral gastroenteritis Patient started on treatment with ceftriaxone 1 g IV every 24 hours and atypical coverage with azithromycin 500 mg p.o. daily IV fluid normal saline at 75 cc an hour Sputum culture and Gram stain if able to expectorate Negative influenza antigen, COVID antigen ordered, yet to be taken. As needed Zofran for vomiting. Protonix 40 mg p.o. daily. Check alcohol level, monitor for signs of alcohol withdrawal. Counseled to refrain from alcohol use and marijuana use. Denies history of past marijuana use and CBD Gummies without any nausea vomiting or other incidents. Check hepatitis screen. DVT prophylaxis: Lovenox Full code Attestations 2 Medical Necessity Statement*: less than 2 midnight stay anticipated Coding Level of Care Code Acute Code for Chg Fwd Moderate MDM includes number and complexity of problems actively addressed during encounter, amount and/or complexity of data reviewed/ordered and described risk of complication, morbidity or mortality of management as documented Diagnoses Pneumonia J18.9 Recurrent vomiting R11.10 Transaminitis R74.01 Dehydration E86.0
[2023-08-18 23:06] LABS: Estmated Average Glucose 114; Hemoglobin A1C 5.6 % (4.0-6.0)
[2023-08-18] MEDS: sodium chloride 0.9% 1,000 ML 75 ML IV (23:30)
[2023-08-18] MEDS: enoxaparin 40 mg/0.4 mL Syringe SUBCUT (23:30)
[2023-08-19] VITALS (7 sets, daily range): BP systolic 122–144; BP diastolic 67–78; PULSE 61–80; RESP 16–18; TEMP 36.4–36.8; O2SAT 95–98
[2023-08-19 03:08] LABS: Basophils % 0.2 %; Eosinophils % 0.1 %; Hematocrit 46.5 % (37-53); Lymphocytes # 1.3 10^3/uL (0.8-4.8); Lymphocytes % 12.9 %; Mean Corpuscular HGB Conc 34.4 g/dL (30-55); Mean Corpuscular Hemoglobin 33.3 pg (27-33); Mean Corpuscular Volume 96.7 fl (82-101); Mean Platelet Volume 9.5 fL (7.4-10.4); Monocytes # 1.1 10^3/uL (0.2-0.9); Monocytes % 11.2 %; Neutrophils # 7.55 10^3/uL (1.8-7.7); Neutrophils % 75.2 %; Nucleated Red Blood Cells % 0 %; Platelet Count 261 10^3/cmm (157-399); Red Blood Count 4.81 10^6/uL (3.85-5.65); Red Cell Distribution Width 12.2 % (12.1-15.1); White Blood Count 10.03 10^3/uL (3.29-11.43)
[2023-08-19 03:23] LABS: Alanine Aminotransferase 100 U/L (0-41); Alkaline Phosphatase 95 U/L (40-130); Blood Urea Nitrogen 8 mg/dL (8-23); Calcium 9.4 mg/dL (8.5-10.5); Carbon Dioxide 24 mmol/L (22-29); Chloride 96 mmol/L (98-107); Creatinine Clr Calc Pharmacy 73.7085; Globulin 3.2 g/dL (1.3-4.6); Glomerular Filtration Rate 114.3 mL/min (90-130); Glucose 110 mg/dL (65-115); Osmolality Calculated 277 mOsm/kg (285-295); Sodium 134 mmol/L (136-145); Total Bilirubin 0.7 mg/dL (0.15-1.2); Total Protein 7.2 g/dL (6.6-8.7)
[2023-08-19 03:24] LABS: Aspartate Amino Transferase 68 U/L (0-40)
[2023-08-19 03:32] LABS: Procalcitonin 0.13 ng/mL (0-0.5)
[2023-08-19 06:14] LABS: Hepatitis A Antibody IgM Non-Reactive (Nonreactive); Hepatitis B Core AB, Total Non-Reactive (Nonreactive); Hepatitis B Surface AB < 3.5 (11.5-1000); Hepatitis B Surface Antigen Non-Reactive (Nonreactive); Hepatitis C Virus Antibody Non-Reactive (Nonreactive)
[2023-08-19 07:15] LABS: Lipase 76 U/L (13-60)
[2023-08-19 07:17] LABS: Alcohol Level < 10 mg/dL (0-10)
[2023-08-19] MEDS: atorvastatin 40 mg Tablet 80 MG PO (08:45)
[2023-08-19] MEDS: fluoxetine 20 mg Capsule PO (08:45)
[2023-08-19] MEDS: amlodipine 10 mg Tablet PO (08:45)
[2023-08-19] MEDS: azithromycin 250 mg Tablet 500 MG PO (08:45)
[2023-08-19] MEDS: aspirin 81 mg EC Tablet PO (08:46)
[2023-08-19] MEDS: metoprolol succinate ER (24 HR) 100 mg Tablet 50 MG PO (08:46)
[2023-08-19] MEDS: pantoprazole DR 40 mg Tablet PO ×2 (08:46→17:51)
[2023-08-19] MEDS: lisinopril 20 mg Tablet 40 MG PO (08:46)
[2023-08-19] MEDS: sodium chloride 0.9% 1,000 ML 75 ML IV (13:04)
[2023-08-19] MEDS: chlordiazePOXIDE 25 mg Capsule PO ×3 (13:17→23:50)
[2023-08-19] MEDS: LORazepam 2 mg Tablet PO (13:43)
--- NOTE | 2023-08-19 14:33 | P.PN_ITS ---
Subjective 2 Subjective: Patient was seen this morning, he is alert to person, to place, to time he can follow commands, does have diffuse tremors of upper extremities, diffuse tremor of his tongue, denies any visual auditory or tactile hallucinations denies any chest pain, does report palpitations, no shortness of breath, his last alcohol drink was 48 hours ago, he tells me that this has happened 1 time before in the past when he quit drinking alcohol, we discussed in detail alcohol withdrawal, he does report nausea but it is improving does report diffuse abdominal pain which has improved, does report diarrhea, Vitals/I&O/Wt Last Vital Signs Temp 98.1 F 08/19/23 11:56 Pulse 67 08/19/23 11:56 Resp 17 08/19/23 11:56 BP 122/71 08/19/23 11:56 Pulse Ox 97 08/19/23 11:56 O2 Del Method Room Air 08/19/23 11:56 08/18/23 08/19/23 08/19/23 22:59 06:59 14:59 Intake Total 2400 / 2400 240 / 2640 1720 / 1720 Balance 2400 / 2400 240 / 2640 1720 / 1720 Weight last 48 hrs Weight 51.483 kg Weight 47.627 kg Weight 63.503 kg Physical Exam 2 Const: COMMON NORMALS: no acute distress and patient oriented x3 Resp: COMMON NORMALS: normal respiratory effort, No retractions, No use of accessory muscles and clear to auscultation bilaterally AUSCULTATION: clear to auscultation bilaterally Cardio: COMMON NORMALS: regular rate, regular rhythm, S1 normal heart sound present and S2 normal heart sound present RATE: regular rate RHYTHM: r egular rhythm HEART SOUNDS: S1 normal heart sound present and S2 normal heart sound present GI: COMMON NORMALS: Normal to inspection, nondistended, normoactive bowel sounds present and non-tender Extremity: COMMON NORMALS: capillary refill normal and no pedal edema Neuro: COMMON NORMALS: patient oriented x3 Psych: COMMON NORMALS: mental status grossly normal Data 08/19/23 02:41 08/19/23 02:41 Micro: Microbiology 08/18/23 18:36 Legionella Urinary Antigen - Final Urine,Voided 08/18/23 19:05 Blood Culture - Preliminary Blood SPECIMEN COLLECTED 08/18/23 19:00 Blood Culture - Preliminary Blood SPECIMEN COLLECTED A&P Assessment and plan (1) Pneumonia: (2) Recurrent vomiting: (3) Transaminitis: May be related to alcohol use (4) Dehydration: From GI loss (5) Alcohol withdrawal: Plan 62-year-old male presenting with generalized weakness, chills, multiple episodes of vomiting over the past [address] of his abdomen and pelvis is negative for any acute abdominal pathology. Incidentally noted to have moderate diffuse hepatic steatosis. Labs significant for leukocytosis, transaminitis, signs of dehydration with hyponatremia, hypochloremia, elevated anion gap at 25, elevated lactate at 2.4, improved with hydration at 1.1. CT of his chest shows peribronchial groundglass opacities and micronodules possibly suggestive of bronchitis versus early pneumonitis. - atypical pneumonia, gastritis, perhaps alcohol induced, viral gastroenteritis, alcohol withdrawal Patient started on treatment with ceftriaxone 1 g IV every 24 hours and atypical coverage with azithromycin 500 mg p.o. daily IV fluid normal saline at 75 cc an hour Sputum culture and Gram stain if able to expectorate Negative influenza antigen, COVID antigen ordered, yet to be taken. As needed Zofran for vomiting. Protonix 40 mg p.o. daily. CIWA protocol, Librium 25 twice daily Counseled to refrain from alcohol use and marijuana use. Denies history of past marijuana use and CBD Gummies without any nausea vomiting or other incidents. Currently on cardiac diet, DVT prophylaxis: Lovenox Full code Plan for today CIWA protocol, scheduled Librium, monitor for alcohol withdrawal, Protonix for gastritis, IV antibiotics for atypical infection possible aspiration, aspiration precautions, continue to monitor closely Attestations 2 Medical Necessity Statement*: Patient requires hospitalization for atypical pneumonia, alcohol withdrawal, alcoholic gastritis, Diagnoses Pneumonia J18.9 Recurrent vomiting R11.10 Transaminitis R74.01 Dehydration E86.0 Alcohol withdrawal F10.939
[2023-08-19] MEDS: nicotine 14 mg Patch 1 PATCH TRANSDERMA (15:06)
[2023-08-19] MEDS: sucralfate 1 gm/10 mL Oral Liq UDC PO (15:07)
[2023-08-19] MEDS: LORazepam 2 mg/mL INJ 10 mL MDV IVP (17:42)
[2023-08-19] MEDS: cefTRIAXone 1,000 MG in sodium chloride 0.9% (plus) 50 ML 100 MG IV (20:52)
[2023-08-19] MEDS: enoxaparin 40 mg/0.4 mL Syringe SUBCUT (23:50)
[2023-08-20] MEDS: sucralfate 1 gm/10 mL Oral Liq UDC PO ×2 (01:56→14:15)
[2023-08-20] MEDS: sodium chloride 0.9% 1,000 ML 75 ML IV (01:56)
[2023-08-20 04:00] VITALS: BP 124/71; PULSE 57; RESP 17; TEMP 36.4; O2SAT 96
[2023-08-20 05:04] LABS: Basophils # 0.1 10^3/uL (0.0-0.1); Basophils % 0.5 %; Eosinophils # 0.1 10^3/uL (0.0-0.8); Eosinophils % 0.9 %; Hematocrit 40.3 % (37-53); Lymphocytes # 1.8 10^3/uL (0.8-4.8); Lymphocytes % 17.4 %; Mean Corpuscular HGB Conc 33.5 g/dL (30-55); Mean Corpuscular Hemoglobin 32.5 pg (27-33); Mean Corpuscular Volume 97.1 fl (82-101); Mean Platelet Volume 9.4 fL (7.4-10.4); Monocytes # 0.8 10^3/uL (0.2-0.9); Monocytes % 7.7 %; Neutrophils # 7.71 10^3/uL (1.8-7.7); Neutrophils % 73.1 %; Nucleated Red Blood Cells % 0 %; Platelet Count 264 10^3/cmm (157-399); Red Blood Count 4.15 10^6/uL (3.85-5.65); Red Cell Distribution Width 12.1 % (12.1-15.1); White Blood Count 10.55 10^3/uL (3.29-11.43)
[2023-08-20 05:23] LABS: Anion Gap 14.2 (5-19); Blood Urea Nitrogen 9 mg/dL (8-23); Calcium 8.5 mg/dL (8.5-10.5); Carbon Dioxide 20 mmol/L (22-29); Chloride 105 mmol/L (98-107); Creatinine Clr Calc Pharmacy 111.7386; Glomerular Filtration Rate 136.5 mL/min (90-130); Glucose 88 mg/dL (65-115); Osmolality Calculated 280 mOsm/kg (285-295); Potassium 3.2 mmol/L (3.5-5.1); Sodium 136 mmol/L (136-145)
[2023-08-20] MEDS: chlordiazePOXIDE 25 mg Capsule PO ×4 (06:48→23:58)
[2023-08-20 07:30] VITALS: BP 135/69; PULSE 90; RESP 17; TEMP 36.6; O2SAT 96
[2023-08-20] MEDS: atorvastatin 40 mg Tablet 80 MG PO (09:12)
[2023-08-20] MEDS: aspirin 81 mg EC Tablet PO (09:13)
[2023-08-20] MEDS: metoprolol succinate ER (24 HR) 100 mg Tablet 50 MG PO (09:13)
[2023-08-20] MEDS: amlodipine 10 mg Tablet PO (09:13)
[2023-08-20] MEDS: lisinopril 20 mg Tablet 40 MG PO (09:13)
[2023-08-20] MEDS: multivitamin therapeutic Tablet 1 TAB PO (09:13)
[2023-08-20] MEDS: pantoprazole DR 40 mg Tablet PO ×2 (09:13→17:41)
[2023-08-20] MEDS: azithromycin 250 mg Tablet 500 MG PO (09:13)
[2023-08-20] MEDS: thiamine 100 mg Tablet PO (09:13)
[2023-08-20] MEDS: folic acid 1 mg Tablet PO (09:13)
[2023-08-20] MEDS: fluoxetine 20 mg Capsule PO (09:13)
[2023-08-20] MEDS: nicotine 14 mg Patch 1 PATCH TRANSDERMA (09:14)
[2023-08-20] MEDS: potassium chloride ER 20 mEq Tablet 40 MEQ PO (09:23)
[2023-08-20 11:48] VITALS: BP 129/74; PULSE 61; RESP 17; TEMP 36.8; O2SAT 96
[2023-08-20 13:08] LABS: Amphetamines Screen Urine Negative (Negative); Barbiturates Screen Urine Negative (Negative); Benzodiazepines Screen Urine Negative (Negative); Cocaine Screen Urine Negative (Negative); Opiate Screen Urine Positive (Negative); PCP Screen Urine Negative (Negative); THC Screen Urine Negative (Negative)
--- NOTE | 2023-08-20 15:40 | PM.PN ---
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, since retiring he prefers to drink alcohol, he does not have anything else to do except drinking she tells me, he does not have any hobbies, he is a smoker, had extensive discussion with him about smoking cessation counseling, CT chest findings of emphysema, pulmonary nodules only to monitor, his CT abdomen findings of hepatic steatosis if he continues to drink alcohol he is high risk of developing liver cirrhosis and morbidity and mortality associated, Vitals/I&O/Wt Last Vital Signs Temp 98.3 F 08/20/23 11:48 Pulse 61 08/20/23 11:48 Resp 17 08/20/23 11:48 BP 129/74 08/20/23 11:48 Pulse Ox 96 08/20/23 11:48 O2 Del Method Room Air 08/20/23 11:48 08/20/23 08/20/23 08/20/23 06:59 14:59 22:59 Intake Total 1325 / 3575 480 / 480 Balance 1325 / 3575 480 / 480 Weight last 48 hrs Weight 55.565 kg Weight 51.483 kg Weight 47.627 kg Weight 63.503 kg Physical Exam Const: COMMON NORMALS: no acute distress and patient oriented x3 Resp: COMMON NORMALS: normal respiratory effort, No retractions, No use of accessory muscles and clear to auscultation bilaterally AUSCULTATION: clear to auscultation bilaterally Cardio: COMMON NORMALS: regular rate, regular rhythm, S1 normal heart sound present and S2 normal heart sound present RATE: regular rate RHYTHM: regular rhythm HEART SOUNDS: S1 normal heart sound present and S2 normal heart sound present GI: COMMON NORMALS: Normal to inspection, nondistended, normoactive bowel sounds present and non-tender Extremity: COMMON NORMALS: no calf tenderness and no pedal edema Neuro: COMMON NORMALS: patient oriented x3 Psych: COMMON NORMALS: mental status grossly normal Skin: NARRATIVE SKIN EXAM: Has evidence of mild protein calorie malnutrition, sarcopenia, bilateral temporal muscle wasting, subcutaneous fat loss over ribs, clavicles, muscle loss in bilateral deltoids, bilateral thighs, Data 08/20/23 04:37 08/20/23 04:37 Micro: Microbiology 08/18/23 19:05 Blood Culture - Preliminary Blood NEGATIVE TO DATE 08/18/23 19:00 Blood Culture - Preliminary Blood NEGATIVE TO DATE A&P Assessment and plan (1) Pneumonia: (2) Recurrent vomiting: (3) Transaminitis: May be related to alcohol use (4) Dehydration: From GI loss (5) Alcohol withdrawal: (6) Physical deconditioning: (7) Mild protein-calorie malnutrition: (8) Sarcopenia: (9) Alcoholism: (10) Low BMI: Plan 62-year-old male presenting with generalized weakness, chills, multiple episodes of vomiting over the past [address] of his abdomen and pelvis is negative for any acute abdominal pathology. Incidentally noted to have moderate diffuse hepatic steatosis. Labs significant for leukocytosis, transaminitis, signs of dehydration with hyponatremia, hypochloremia, elevated anion gap at 25, elevated lactate at 2.4, improved with hydration at 1.1. CT of his chest shows peribronchial groundglass opacities and micronodules possibly suggestive of bronchitis versus early pneumonitis. - atypical pneumonia, gastritis, perhaps alcohol induced, viral gastroenteritis, alcohol withdrawal Patient started on treatment with ceftriaxone 1 g IV every 24 hours and atypical coverage with azithromycin 500 mg p.o. daily IV fluid normal saline at 75 cc an hour Sputum culture and Gram stain if able to expectorate Negative influenza antigen, COVID antigen ordered, yet to be taken. As needed Zofran for vomiting. Protonix 40 mg p.o. daily. Last alcohol drink was 72 hours ago, going through alcohol withdrawals [facility] protocol, Librium 25 twice daily Counseled to refrain from alcohol use and marijuana use. Denies history of past marijuana use and CBD Gummies without any nausea vomiting or other incidents. Smoking, discussed CT scan, needs to follow-up pulmonary nodules, emphysema, smoking cessation counseling Currently on cardiac diet, Has evidence of protein calorie malnutrition, physical deconditioning, sarcopenia, likely related to his alcoholism, protein calorie malnutrition, due to alcoholism, liver disease, BMI is low at 19.2 ? Plan ? Dietary eval -PT OT ? Add protein shakes to meals, ? Discussion of alcohol cessation counseling DVT prophylaxis: Lovenox Full code Plan for today continue IV antibiotics for pneumonia, still going through alcohol withdrawal CIWA protocol continue Librium, has episodes of anxiety during the day, once his IV removed, concerns for pneumonia needing aspiration pneumonia Attestations Medical Necessity Statement*: Patient requires hospitalization for alcohol withdrawal, atypical pneumonia concern for aspiration pneumonia, evidence of mild protein calorie malnutrition, physical deconditioning, sarcopenia Diagnoses Pneumonia J18.9 Recurrent vomiting R11.10 Transaminitis R74.01 Dehydration E86.0 Alcohol withdrawal F10.939 Physical deconditioning R53.81 Mild protein-calorie malnutrition E44.1 Sarcopenia M62.84 Alcoholism F10.20 Low BMI
[2023-08-20 15:49] VITALS: BP 121/74; PULSE 63; RESP 17; O2SAT 98
[2023-08-20 19:38] VITALS: BP 121/67; PULSE 57; RESP 18; TEMP 36.7; O2SAT 97
[2023-08-20] MEDS: cefTRIAXone 1,000 MG in sodium chloride 0.9% (plus) 50 ML 100 MG IV (21:07)
[2023-08-20 23:41] VITALS: BP 130/69; PULSE 59; RESP 18; TEMP 36.6; O2SAT 97
[2023-08-20] MEDS: enoxaparin 40 mg/0.4 mL Syringe SUBCUT (23:57)
[2023-08-21] MEDS: sucralfate 1 gm/10 mL Oral Liq UDC PO (03:25)
[2023-08-21 04:00] VITALS: BP 125/75; PULSE 64; RESP 17; TEMP 36.6; O2SAT 97
[2023-08-21] MEDS: chlordiazePOXIDE 25 mg Capsule PO (06:07)
[2023-08-21 08:00] VITALS: BP 136/81; PULSE 96; RESP 16; TEMP 36.4; O2SAT 97
[2023-08-21] MEDS: multivitamin therapeutic Tablet 1 TAB PO (08:40)
[2023-08-21] MEDS: lisinopril 20 mg Tablet 40 MG PO (08:40)
[2023-08-21] MEDS: thiamine 100 mg Tablet PO (08:40)
[2023-08-21] MEDS: aspirin 81 mg EC Tablet PO (08:40)
[2023-08-21] MEDS: metoprolol succinate ER (24 HR) 100 mg Tablet 50 MG PO (08:40)
[2023-08-21] MEDS: amlodipine 10 mg Tablet PO (08:40)
[2023-08-21] MEDS: atorvastatin 40 mg Tablet 80 MG PO (08:40)
[2023-08-21] MEDS: pantoprazole DR 40 mg Tablet PO (08:40)
[2023-08-21] MEDS: folic acid 1 mg Tablet PO (08:40)
[2023-08-21] MEDS: azithromycin 250 mg Tablet 500 MG PO (08:41)
[2023-08-21] MEDS: fluoxetine 20 mg Capsule PO (08:41)
--- NOTE | 2023-08-21 10:08 | PC.CHAP ---
Pastoral Care Encounter/Spiritual Assessment Type of Contact [] Declined mechanical developer prover visit [] Patient/Family/Request visit [] Outpatient visit [] Follow-up visit [] Physician referral [] Code/Alert [x] Routine visit [] Staff referral [] Actively dying [] Patient sleeping [x] Family support [] [] Out of room [] Palliative care [] [] Receiving care in room [] Pre-surgical visit [] Trauma [] Long length of stay [] ICU visit [] Other: Relational/Emotional Strength [] Patient feels connected with others/family/visitors/staff [] Distress [] Loneliness/isolation [] Abandonment Spirituality of Patient [x] Person of Daiana [] Attends Oriental Orthodox of their [place] [x] Believes in Prayer [] Reads Bible or Pentecostal materials [] There are Spiritual issues to be addressed Recruiting Team Lead Interventions [x] Prayer [x] Active listening [] Non-anxious presence [] Spiritual/emotional support [] Crisis/trauma care [] Spiritual counseling [] Bereavement support [] Provided bereavement packet [x] Provided Bible/devotional materials [] Provided toy/stuffed animal, coloring book to patient or family member [] Provided Communion [] Anointing/Fellows [] Salvation [x] Completed spiritual assessment [] Other: Impact on Illness or Injury [] Angry [] Fearful [] Anxious [] Often cries [] Exhaustion [] Unable to work [] Unable to attend christianity [] Unable to walk/stand [] Unable to read [] Unable to drive [] Unable to eat/drink [] Unable to sleep [] Unable to be with family [] Patient intubated [] Other: Summary Time spent with patient 10 min
--- NOTE | 2023-08-21 10:19 | P.DS_ITS ---
Discharge Providers Date of Admission: 08/20/23 11:50 Date of Discharge: August 21, 2023 Attending Provider at Admission: Kailee Chi MD Attending Provider at Discharge: Cheikh Del Rio MD Primary Care Provider: Elle Seo NP Diagnoses at Discharge Discharge Diagnosis (1) Pneumonia: Status: Acute (2) Recurrent vomiting: Status: Acute (3) Transaminitis: Status: Acute (4) Dehydration: Status: Acute (5) Alcohol withdrawal: Status: Acute (6) Physical deconditioning: Status: Acute (7) Mild protein-calorie malnutrition: Status: Acute (8) Sarcopenia: Status: Acute (9) Alcoholism: Status: Acute (10) Low BMI: Status: Acute (11) Encounter for smoking cessation counseling: Status: Acute (12) Alcohol cessation counseling: Status: Acute Reason for Visit Reason for Visit: weakness Hospital Course Hospital Course Myles Ramsay is a 62 year old male with a past medical history of hypertension who is presenting to the emergency room today with 3 to 4 days of increasing generalized weakness, shaking chills, multiple episodes of vomiting. Patient states that he has been unable to keep any oral intake, starts to throw up as soon as he drinks a glass of water. Presented to the emergency room today as he felt much worse than usual. Denies any cough dyspnea chest pain palpitations abdominal pain or diarrhea. Denies any fever but does report chills. Patient states he drinks a few beers a week, does not quantify unless specifically asked. Uses marijuana and CBD Gummies to sleep. States that prior to starting his current symptoms 3 days ago he had had 3 beers. Patient was admitted to [facility] for aspiration pneumonia, pneumonia received broad-spectrum antibiotic therapy overall clinical improved, discharged on doxycycline Patient was admitted to [facility] for alcohol withdrawal, managed with [facility] protocol Librium taper, overall clinically improved, discharged with Librium taper, advised to not drink or operate machinery or drive while taking medication For his alcoholism, I had a lengthy conversation about his alcoholism, to quit drinking alcohol, routine mortality associate with alcoholism his hepatic steatosis and his elevated LFTs, which need to be monitored as outpatient repeat ultrasound of his liver in 6 to 12 months potentially consider referral to general gastroenterology I had extensive discussion with him about smoking cessation counseling, CT scan shows emphysema he needs to quit smoking morbidity mortality discussed, cardiovascular mortality, risk of cancers, discharged with nicotine patch Patient has pulmonary nodules, these need to be followed up as outpatient, repeat CAT scan 6 to 12 months, consider referral to pulmonary Marijuana cessation counseling Physical Exam Const: COMMON NORMALS: no acute distress and patient oriented x3 Resp: COMMON NORMALS: normal respiratory effort, No retractions, No use of accessory muscles and clear to auscultation bilaterally AUSCULTATION: clear to auscultation bilaterally Cardio: COMMON NORMALS: regular rate, regular rhythm, S1 normal heart sound present and S2 normal heart sound present RATE: regular rate RHYTHM: regular rhythm HEART SOUNDS: S1 normal heart sound present and S2 normal heart sound present GI: COMMON NORMALS: Normal to inspection, nondistended, normoactive bowel sounds present Extremity: COMMON NORMALS: no pedal edema Neuro: COMMON NORMALS: patient oriented x3 Psych: COMMON NORMALS: mental status grossly normal Discharge Data Studies Completed and Pending Completed Studies During Hospitalization Category Date Time Status CT angio chest w abd pel w con Stat Cat Scan 08/18/23 16:21 Completed XR chest 1V portable [id number] Stat Exams 08/18/23 16:14 Completed Pending at discharge Category Date Time Status Blood Culture Stat Lab 08/18/23 19:05 Results COVID [SARS Covid-2 Antigen] Routine Lab 08/18/23 19:41 Ordered Sputum Culture and Gram Stain Routine Lab 08/18/23 22:32 Uncollected Radiology Impressions Chest X-Ray 08/18/23 16:14 IMPRESSION: Hyperinflated lungs suggestive of COPD. No focal airspace opacity. Chest/Abdomen/Pelvis CT 08/18/23 16:21 IMPRESSION: 1. No evidence of pulmonary embolism or acute aortic abnormality. 2. Mild -moderate emphysema and hyperinflation. Superimposed mild peribronchial ground-glass opacities and micronodules in the left greater than right lower lobes , suggestive of COPD exacerbation, bronchitis / early pneumonitis. 3. Scattered 2-3 mm basilar and upper lobe lung nodules , follow-up CT in 1 year is recommended in this high-risk patient according to the Fleischner guidelines. IMPRESSION: 1. No acute abdominopelvic abnormality or other imaging correlate for the reported history of weight loss. 2. Moderate diffuse hepatic steatosis, scattered sigmoid diverticuli, simple left renal cysts and other incidental and degenerative findings detailed above. COMMENTS: Consistent with the [employer]'s Incidental Findings Committee white paper (J Am Shirley Radiol 2018): Any incidental renal lesion less than 1 cm or classified as too small to characterize, or any incidental cystic renal lesion characterized as simple-appearing, is likely benign. No follow-up imaging is recommended for these lesions per consensus recommendations based on imaging criteria. Laboratory Results WBC 10.55 10^3/uL (3.29-11.43) 08/20/23 04:37 RBC 4.15 10^6/uL (3.85-5.65) 08/20/23 04:37 Hgb 13.50 g/dL (11.27-16.99) 08/20/23 04:37 Hct 40.3 % (37-53) 08/20/23 04:37 MCV 97.1 fl (82-101) 08/20/23 04:37 MCH 32.5 pg (27-33) 08/20/23 04:37 MCHC 33.5 g/dL (30-55) 08/20/23 04:37 RDW 12.1 % (12.1-15.1) 08/20/23 04:37 Plt Count 264 10^3/cmm (157-399) 08/20/23 04:37 MPV 9.4 fL (7.4-10.4) 08/20/23 04:37 Neut % (Auto) 73.1 % 08/20/23 04:37 Lymph % (Auto) 17.4 % 08/20/23 04:37 [place] % (Auto) 7.7 % 08/20/23 04:37 Eos % (Auto) 0.9 % 08/20/23 04:37 Baso % (Auto) 0.5 % 08/20/23 04:37 Neut # (Auto) 7.71 10^3/uL (1.8-7.7) H 08/20/23 04:37 Lymph # (Auto) 1.8 10^3/uL (0.8-4.8) 08/20/23 04:37 [place] # (Auto) 0.8 10^3/uL (0.2-0.9) 08/20/23 04:37 Eos # (Auto) 0.1 10^3/uL (0.0-0.8) 08/20/23 04:37 Baso # (Auto) 0.1 10^3/uL (0.0-0.1) 08/20/23 04:37 Nucleated RBC % (auto) 0 % 08/20/23 04:37 Nucleated RBCs # 0.0 /100WBC 08/20/23 04:37 PT 12.80 SECONDS (12.1-14.9) 08/18/23 16:41 INR 0.93 (0.8-1.2) 08/18/23 16:41 Sodium 136 mmol/L (136-145) 08/20/23 04:37 Potassium 3.2 mmol/L (3.5-5.1) L 08/20/23 04:37 Chloride 105 mmol/L (98-107) 08/20/23 04:37 Carbon Dioxide 20 mmol/L (22-29) L 08/20/23 04:37 Anion Gap 14.2 (5-19) 08/20/23 04:37 BUN 9 mg/dL (8-23) 08/20/23 04:37 Creatinine 0.6 mg/dL (0.7-1.2) L 08/20/23 04:37 GFR Calculation 136.5 mL/min (90-130) H 08/20/23 04:37 Glucose 88 mg/dL (65-115) 08/20/23 04:37 Estimat Average Glucose 114 08/18/23 16:41 Hemoglobin A1c 5.6 % (4.0-6.0) 08/18/23 16:41 Calculated Osmolality 280 mOsm/kg (285-295) L 08/20/23 04:37 Lactic Acid 2.4 mmol/L (0.5-2.2) H 08/18/23 17:52 Lactic Acid (Sepsis) 1.1 mmol/L (0.5-2.2) 08/18/23 20:58 Calcium 8.5 mg/dL (8.5-10.5) 08/20/23 04:37 Magnesium 2.0 mg/dL (1.7-2.3) 08/18/23 16:41 Total Bilirubin 0.7 mg/dL (0.15-1.2) 08/19/23 02:41 AST 68 U/L (0-40) H 08/19/23 02:41 ALT 100 U/L (0-41) H 08/19/23 02:41 Alkaline Phosphatase 95 U/L (40-130) 08/19/23 02:41 Troponin T Baseline 10 ng/L (0-15) 08/18/23 16:41 Troponin T 120 Minute 10.28 ng/L (0-15) 08/18/23 17:52 Delta Troponin T 0.28 ABS# (0-10) 08/18/23 17:52 Troponin T Hi Sens 6Hr 15.97 ng/L (0-15) H 08/18/23 21:36 Troponin T Hi Sens 6Hr Delta 5.97 ng/L (0-12) 08/18/23 21:36 Total Protein 7.2 g/dL (6.6-8.7) 08/19/23 02:41 Albumin 4.0 g/dL (3.5-5.2) 08/19/23 02:41 Globulin 3.2 g/dL (1.3-4.6) 08/19/23 02:41 Lipase 76 U/L (13-60) H 08/19/23 02:41 Procalcitonin 0.13 ng/mL (0-0.5) 08/19/23 02:41 TSH 2.57 uIU/mL (0.27-4.20) 08/18/23 16:41 Urine Color Yellow (Yellow) 08/18/23 18:38 Urine Appearance Clear (CLEAR) 08/18/23 18:38 Urine pH 6.5 (5-7) 08/18/23 18:38 Ur Specific [place] 1.005 (1.005-1.030) 08/18/23 18:38 Urine Protein 1+ (Negative) H 08/18/23 18:38 Urine Glucose (UA) Norm (Normal) 08/18/23 18:38 Urine Ketones 2+ (Negative) H 08/18/23 18:38 Urine Blood Neg (Negative) 08/18/23 18:38 Urine Nitrate Negative (Negative) 08/18/23 18:38 Urine Bilirubin Neg (Negative) 08/18/23 18:38 Urine Urobilinogen 1 mg/dL (Negative) H 08/18/23 18:38 Ur Leukocyte Esterase Negative (Negative) 08/18/23 18:38 Urine RBC 0-4 /hpf (0-2) H 08/18/23 18:38 Urine WBC None /hpf (0-5) 08/18/23 18:38 Ur Squamous Epith Cells 0-4 /hpf (0-5) H 08/18/23 18:38 Amorphous Sediment Not Reportable 08/18/23 18:38 Urine Bacteria None /hpf (NONE) 08/18/23 18:38 Urine Mucus Trace /hpf 08/18/23 18:38 Urine Opiates Screen Positive ng/mL (Negative) H 08/20/23 12:45 Ur Barbiturates Screen Negative ng/mL (Negative) 08/20/23 12:45 Ur Phencyclidine Scrn Negative ng/mL (Negative) 08/20/23 12:45 Ur Amphetamines Screen Negative ng/mL (Negative) 08/20/23 12:45 U Benzodiazepines Scrn Negative ng/mL (Negative) 08/20/23 12:45 Urine Cocaine Screen Negative ng/mL (Negative) 08/20/23 12:45 U Marijuana (THC) Screen Negative ng/mL (Negative) 08/20/23 12:45 Ethyl Alcohol < 10 mg/dL (0-10) 08/19/23 02:41 Hepatitis A IgM Ab Non-reactive (Nonreactive) 08/19/23 02:41 Hep Bs Antigen Non-reactive (Nonreactive) 08/19/23 02:41 Hep Bs Antibody < 3.5 (11.5-1000) L 08/19/23 02:41 Hep B Core Total Ab Non-reactive (Nonreactive) 08/19/23 02:41 Hepatitis C Antibody Non-reactive (Nonreactive) 08/19/23 02:41 Influenza Type A Ag negative (Negative) 08/18/23 19:42 Influenza Type B Ag negative (Negative) 08/18/23 19:42 Vitals Last Vital Signs Temp 97.5 F L 08/21/23 08:00 Pulse 96 08/21/23 08:00 Resp 16 08/21/23 08:00 BP 136/81 08/21/23 08:00 Pulse Ox 97 08/21/23 08:00 O2 Del Method Room Air 08/20/23 15:49 Discharge Plan Discharge Patient Disposition: Home Condition: Stable Prescriptions: New Thera 400 mcg Tablet 1 tab PO DAILY 30 Days Qty: 30 0RF nicotine 21 mg/24 hr patch 24 hour 1 patch transdermal DAILY 28 Days Qty: 28 0RF chlordiazepoxide HCl 25 mg Capsule See Rx Instructions .ROUTE .COMPLEX Qty: 18 0RF Rx Instructions: 1 tab tid 3 days, 1 tab bid for 3 days, 1 tab daily for 3 days then stop pantoprazole 40 mg Tablet,Delayed Release (Dr/Ec) 40 mg PO BIDWM 30 Days Qty: 60 0RF Vitamin B-1 (mononitrate) 100 mg Tablet 100 mg PO DAILY 30 Days Qty: 30 0RF doxycycline hyclate 100 mg tablet 100 mg PO BID 5 Days Qty: 10 0RF Continued sildenafil 50 mg tablet 50 mg PO DAILY PRN (Reason: sexual activity) Qty: 30 0RF Rx Instructions: administer 30 minutes to 4 hours before activity fluoxetine 20 mg capsule 20 mg PO DAILY amlodipine [Norvasc] 10 mg tablet 10 mg PO DAILY Qty: 90 3RF aspirin 81 mg tablet,delayed release (DR/EC) 81 mg PO DAILY Qty: 90 3RF metoprolol succinate [Toprol XL] 100 mg tablet extended release 24 hr 50 mg PO DAILY Qty: 90 3RF ramipril [Altace] 10 mg capsule 10 mg PO DAILY Qty: 90 3RF rosuvastatin [Crestor] 40 mg tablet 40 mg PO DAILY Qty: 90 3RF hydroxyzine HCl 25 mg tablet 25 mg PO TID PRN (Reason: itching) Qty: 270 3RF Discharge Orders: Discharge Order (Routine); Ordered 08/21/23 Ordered By: Cheikh Del Rio Referrals: Elle Seo NP [Primary Care Provider] - Trevor Maddox MD [Physician] - 4-7 days Discharge Diet: Cardiac Discharge Activity: Resume usual activity Patient Instructions: Opioid Safety Activity Restrictions/Additional Instructions: - Please abstain from smoking, smoking has increased risk of cardiovascular mortality increased risk of worsening of your emphysema, risk of lung cancer ? For your pulmonary nodules please follow-up with primary care, these need to be monitored, low-dose CT scan in 6 to 12 months, can consider referral to pulmonary ? Please abstain from alcohol consumption, ? Please take Librium taper as prescribed, do not drive or drink or operate heavy machinery while taking this medication ? Please follow-up with primary care provider for blood pressure check -Please avoid marijuana use Please hydrate well drink plenty of electrolyte balanced fluids -please take antibiotics as prescribed Discharge Attestations Time Spent in Discharge Care*: greater than 30 min Time Spent in Smoking Cessation: more than 10 minutes Quality Metrics Clinical Quality Measures [ No reported AMI, CVA or VTE this stay] Coding Level of Care Code 48758 Total time (in minutes) for Discharge: 45 Diagnoses Pneumonia J18.9 Recurrent vomiting R11.10 Transaminitis R74.01 Dehydration E86.0 Alcohol withdrawal F10.939 Physical deconditioning R53.81 Mild protein-calorie malnutrition E44.1 Sarcopenia M62.84 Alcoholism F10.20 Low BMI Encounter for smoking cessation counseling Z71.6 Alcohol cessation counseling Z71.41
[2023-08-21 10:53] VITALS: BP 136/81; PULSE 96; RESP 16; TEMP 36.9; O2SAT 97
--- NOTE | 2023-08-21 10:53 | PC.NURSE ---
Patient is A&Ox3. Respirations even and non-labored on room air. Patient is sitting in the chair next to his . Patient denies any pain. Reviewed patient discharge instructions with patient and . Patient and verbalize understanding of discharge instructions and follow up appointment. Patient was instucted not to smoke with the nicotine patches on because it will make him sick. Patient ambulated to his private car.
--- NOTE | 2023-08-21 11:32 | PC.OT ---
OT EVALUATION ORDERS RECEIVED. PATIENT IN THE PROCESS OF D/C
== END 2023-08-21 10:53 | disposition home or self-care (01) | DRG 896 ==
LOC: ER 16:25 → MEDSURG 19:43
PROVIDERS: Admitting Provider Student in an Organized Health Care Education/Training Program; Emergency Provider Emergency Medicine; PCP Nurse Practitioner Family; Visit Provider Family Medicine
DX: F10.239 Alcohol dependence with withdrawal, unspecified (principal); J18.9 Pneumonia, unspecified organism; E44.1 Mild protein-calorie malnutrition; Z68.1 Body mass index [BMI] 19.9 or less, adult; R53.81 Other malaise; M62.84 Sarcopenia; E86.0 Dehydration; R91.1 Solitary pulmonary nodule; J43.9 Emphysema, unspecified; K76.0 Fatty (change of) liver, not elsewhere classified; Z72.0 Tobacco use; I10 Essential (primary) hypertension; R11.10 Vomiting, unspecified; R74.01 Elevation of levels of liver transaminase levels; Z79.82 Long term (current) use of aspirin
CPT/HCPCS: 36415; 71045; 71275; 74177; 80048; 80053; 80306; 80307; 81001; 83036; 83605; 83690; 83735; 84145; 84443; 84484; 85025; 85610; 86705; 86706; 86709; 86803; 87040; 87340; 87449; 87804; 93005; 96365; 96367; 96372; 96375; 99285; G0378; J0456; J0696; J1650; J2060; J3411; J7030; J7050; Q0144; Q9967

== ENCOUNTER → 2023-09-19 10:51 | Outpatient (BNVA) | payer OTHER, SELFPAY | PROVIDERS: PCP Nurse Practitioner Family; Visit Provider Family Medicine | DX: F32.1 Major depressive disorder, single episode, moderate (principal); I10 Essential (primary) hypertension; Z09 Encounter for follow-up examination after completed treatment for conditions other than malignant neoplasm; Z95.5 Presence of coronary angioplasty implant and graft; I25.10 Atherosclerotic heart disease of native coronary artery without angina pectoris; F41.9 Anxiety disorder, unspecified; F17.200 Nicotine dependence, unspecified, uncomplicated; E78.5 Hyperlipidemia, unspecified; R91.8 Other nonspecific abnormal finding of lung field; F10.11 Alcohol abuse, in remission; Z79.899 Other long term (current) drug therapy | CPT/HCPCS: 80053; 85025 ==

== ENCOUNTER 2023-09-28 07:29 | Day surgery (SDC) | payer OTHER, SELFPAY ==
--- NOTE | 2023-09-28 07:00 | W.PM.OPSFHP ---
Same Day Surgery H&P Indication for Procedure/HPI DATE OF PROCEDURE: September 28, 2023 CHIEF COMPLAINT/INDICATIONFOR SURGICAL PROCEDURE: need for screening colonoscopy PREOP DIAGNOSIS: positive cologuard PLANNED PROCEDURE: Operation Date: 09/28/23 08:35 Proposed Procedures p 02242 colon G0105 screen colon H risk Z12.11(Not Applicable) - Keyshawn Brown MD Medications/Allergies* Allergies/Adverse Reactions Allergy/AdvReac Type Severity Reaction Status Date / Time No Known Allergies Allergy Verified 09/19/23 09:30 Pertinent History/Comorbid Conditions* Medical History (Updated 09/19/23 @ 10:33 by Trevor Maddox MD) Pulmonary nodules Hyperlipidemia Tobacco use disorder 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 Hypertension, essential History of placement of stent in LAD coronary artery Surgical History (Updated 12/30/20 @ 14:30 by Benjamin Walsh M.D) History of heart artery stent Family History (Updated 12/30/20 @ 10:41 by Parul Hilton RN) Stomach cancer Mother Dementia Father Heart disease Father Breast cancer Mother Lung cancer Mother Social History Smoking and tobacco/nicotine status: former use of tobacco/nicotine Alcohol intake: current Alcohol intake frequency: holidays/special occasions only Substance/Drug Use: never Additional social history: Uses marijuana and CBD Gummies daily Pertinent Exam Findings alert, oriented x 3, clear to auscultation bilaterally and regular rate & rhythm Recommendations Surgery/Procedure today Coding Level of Care Code Acute Code for Akshatg Fwgeovanna
[2023-09-28 07:35] VITALS: BP 130/94; PULSE 109; RESP 18; TEMP 36.4; O2SAT 98; BMI 21.9
--- NOTE | 2023-09-28 07:55 | P.ANESASSM_ITS ---
Pre-Anesthetic Assessment Height/Weight: Height 1.7 m Weight 63.503 kg Temp Pulse Resp BP Pulse Ox O2 Del Method 97.6 F 109 H 18 130/94 98 Room Air 09/28/23 07:35 09/28/23 07:35 09/28/23 07:35 09/28/23 07:35 09/28/23 07:35 09/28/23 07:35 Preop Diagnosis: positive cologuard Operation Date: 09/28/23 08:35 Proposed Procedures p 98287 colon G0105 screen colon H risk Z12.11(Not Applicable) - Keyshawn Brown MD Was Beta John taken within 24 hours: Yes Last intake: Intake Last Liquid Date 09/27/23 Last Liquid Time 21:00 Last Solid Date 09/26/23 Last Solid Time 17:00 Social Alcohol and Tobacco Occasional THC Exam alert, oriented x 3, clear to auscultation bilaterally and regular rate & rhythm Airway Submandibular: within normal limits Cervical ROM: within normal limits Mallampati: Class II Dentition: full History/ROS No significant history except as noted and No significant complaints Pulmonary Chronic Obstructive Pulmonary Disease CV/HEM Coronary Artery Disease and Hypertension None reported Hepatic None reported GI None reported Metabolic Hyperlipidemia [facility] None reported Neuropsych Anxiety and Depression Anesthetic Plan ASA status: 3 Anesthesia: Anesthesia Evaluation and MAC Risk of > 500 ml blood loss (7ml/kg in children): No Medications/Allergies Home Medications Medication Instructions Recorded Confirmed Last Taken Type aspirin 81 mg tablet,delayed 81 mg PO DAILY #90 tabs 06/29/22 09/28/23 09/26/23 Rx release rosuvastatin 40 mg tablet (Crestor) 40 mg PO DAILY #90 tabs 06/29/22 09/28/23 09/27/23 Rx hydroxyzine HCl 25 mg tablet 25 mg PO TID PRN itching #270 tabs 07/07/22 09/28/23 09/26/23 Rx amlodipine 10 mg tablet (Norvasc) 10 mg PO .qnightly #90 tabs 09/19/23 09/28/23 09/26/23 Rx fluoxetine 40 mg capsule 40 mg PO DAILY #21 caps 09/19/23 09/28/23 09/26/23 Rx metoprolol succinate 25 mg 25 mg PO DAILY #90 tabs 09/19/23 09/28/23 09/27/23 Rx tablet,extended release 24 hr Allergies Allergy/AdvReac Type Severity Reaction Status Date / Time No Known Allergies Allergy Verified 09/28/23 07:45 [facility] Anesthesia Medical History (Updated 09/19/23 @ 10:33 by Trevor Maddox MD) Pulmonary nodules Hyperlipidemia Tobacco use disorder 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
[2023-09-28] MEDS: sodium chloride 0.9% 1,000 ML 30 ML IV (08:03)
[2023-09-28 08:58] VITALS: BP 92/59; PULSE 60; RESP 12; TEMP 36.3; O2SAT 97
[2023-09-28 09:20] VITALS: BP 116/77; PULSE 66; RESP 14; O2SAT 100
--- NOTE | 2023-09-29 09:35 | ANE.PACU2 ---
Inpatient post-anesthesia follow up: Airway intact: Yes Vital signs: Temperature 97.3 F Pulse Rate 66 Respiratory Rate 14 Blood Pressure 116/77 Pulse Oximetry 100 Oxygen Delivery Me thod Room Air Oxygen Flow Rate 3 Fraction of Inspir ed Oxygen Hydration adequate: Yes Nausea and vomiting: No Pain level: 1 Mental status: Baseline
== END 2023-09-28 09:35 | disposition home or self-care (01) ==
PROVIDERS: PCP Family Medicine; Visit Provider Surgery
PROC: 0DJD8ZZ Inspection of Lower Intestinal Tract, Via Natural or Artificial Opening Endoscopic (ICD-10-PCS; CPT 45378; principal; 2023-09-28 08:35)
DX: Z12.11 Encounter for screening for malignant neoplasm of colon (principal); D12.8 Benign neoplasm of rectum; E78.5 Hyperlipidemia, unspecified; I10 Essential (primary) hypertension; Z95.5 Presence of coronary angioplasty implant and graft; Z87.891 Personal history of nicotine dependence
CPT/HCPCS: 45380; 45385; 88305; J2704; J7030

== ENCOUNTER 2024-07-31 08:50 | Outpatient (CLI) | payer OTHER, SELFPAY ==
--- NOTE | 2024-07-31 09:00 | CT_ITS ---
WS: [id number] CT chest wo con [id number] HISTORY: nodules TECHNIQUE: Axial imaging performed through the thorax. Coronal and sagittal reformats are submitted. All CT scans at [facility] use at least one of these dose optimization techniques: automated exposure control; mA and/or kV adjustment per patient size (includes targeted exams where dose is matched to clinical indication); or iterative reconstruction. CONTRAST: None DLP: 282.74 mGy.cm COMPARISON: 08/18/2023 Lungs and central airway: Mild pulmonary hyperinflation. There are a few very tiny micronodules which have not changed in size. No suspicious mass or nodule. No pneumothorax. No pneumonia. Pleura: Normal. No pleural effusion. Heart and pericardium: Normal size heart with no pericardial effusion. Mediastinum and ivan: No mediastinum or hilar adenopathy. Vessels: Minimal atherosclerosis aorta. Chest wall and lower neck: No soft tissue masses. Upper abdomen: Hepatic steatosis. LEFT renal cyst 2.2 cm. No adrenal mass. Osseous structures: No destructive process. CT/CT chest wo con [id number] IMPRESSION: 1. Very tiny, pulmonary micronodules. No additional imaging recommended. No pn eumonia. 2. No mediastinal or hilar adenopathy. 3. Chronic emphysema. 4. Hepatic steatosis.
== END 2024-07-31 08:51 | disposition home or self-care (01) ==
LOC: RAD 08:51
PROVIDERS: PCP Family Medicine; Visit Provider Family Medicine
DX: R91.8 Other nonspecific abnormal finding of lung field (principal); K76.0 Fatty (change of) liver, not elsewhere classified; N28.1 Cyst of kidney, acquired; J43.8 Other emphysema
CPT/HCPCS: 71250